=== PATIENT | female | born 1935 | race American Indian/Alaskan Native ===

== ENCOUNTER 2018-10-19 07:16 | Emergency (ER) | payer MEDICARE, OTHER ==
[2018-10-19 07:32] VITALS: TEMP 98.4; O2SAT 100
--- NOTE | 2018-10-19 08:01 | ED PDOC ---
Arrival/HPI - General Chief Complaint: Lower Extremity Problem/Injury Historian: Patient, Family - History of Present Illness Narrative History of Present Illness (Text): 10/19/18 07:56 83 year old female, with a past medical history of CHF, and glaucoma, who presents to the emergency department complaining of hardened long toenails. As per daughter, patient called her stating she had difficulty walking. Daughter reports she traveled from [place] and unsuccessfully attempted to contact several podiatry offices. Patient denies any shortness of breath, edema, fever, nausea, vomiting, chest pain, back pain, or any other somatic complaints. Patie nt denies any pain presently. PMD: Dr. Mathis Symptom Onset: Gradual Symptom Course: Unchanged Activities at Onset: Light Context: Home Past Medical History - Provider Review Nursing Documentation Reviewed: Yes - Infectious Disease Hx of Infectious Diseases: None - Reproductive Menopause: Yes - Cardiac Hx Congestive Heart Failure: Yes - HEENT Hx Glaucoma: Yes - Psychiatric Hx Substance Use: No - Anesthesia Hx Anesthesia: No Hx Anesthesia Reactions: No Hx Malignant Hyperthermia: No Family/Social History - Physician Review Nursing Documentation Reviewed: Yes Family/Social History: Unknown Family HX Smoking Status: Never Smoked Hx Alcohol Use: No Hx Substance Use: No Allergies/Home Meds Allergies/Adverse Reactions: Allergies No Known Allergies Allergy (Verified 10/19/18 07:31) Home Medications: Home Meds Medication Instructions Recorded Confirmed Unobtainable 10/19/18 10/19/18 Review of Systems - Physician Review All systems were reviewed & negative as marked: Yes - Review of Systems Respiratory: absent: SOB Cardiovascular: absent: Chest Pain Gastrointestinal: absent: Nausea, Vomiting Musculoskeletal: absent: Back Pain, Neck Pain Neurological: Gait Changes Physical Exam Vital Signs Reviewed: Yes Vital Signs Temp Pulse Resp BP Pulse Ox 10/19/18 07:30 98.4 F 79 17 154/89 H 100 Temperature: Afebrile Blood Pressure: Normal Pulse: Regular Respiratory Rate: Normal Appearance: Positive for: Well-Appearing, Non-Toxic, Comfortable Pain Distress: None Mental Status: Positive for: Alert and Oriented X 3 - Systems Exam Head: Present: Atraumatic, Normocephalic Pupils: Present: PERRL Extroacular Muscles: Present: EOMI Conjunctiva: Present: Normal Mouth: Present: Moist Mucous Membranes Neck: Present: Normal Range of Motion Respiratory/Chest: Present: Clear to Auscultation, Good Air Exchange. No: Respiratory Distress, Accessory Muscle Use Cardiovascular: Present: Regular Rate and Rhythm, Normal S1, S2. No: Murmurs Abdomen: No: Tenderness, Distention, Peritoneal Signs Back: Present: Normal Inspection Upper Extremity: Present: Normal Inspection. No: Cyanosis, Edema Lower Extremity: Present: Other (Onychauxis, hyperkeratosis of the hallux, bilaterally.). No: Edema Neurological: Present: GCS=15, CN II-XII Intact, Speech Normal Skin: Present: Warm, Dry, Normal Color. No: Rashes Psychiatric: Present: Alert, Oriented x 3, Normal Insight, Normal Concentration Medical Decision Making ED Course and Treatment: 10/19/18 07:54 Impression: 83 year old female presents to the emergency department complaining of hardened long toenails. Differential Diagnosis included but are not limited to: Plan: -- Labs -- Chest X-ray -- Urinalysis -- Iv fluids -- X-ray left and right foot -- Reassess and disposition Prior Visits: Notes and results from previous visits were reviewed. Progress Notes: 10/19/18 09:12 Spoke with Podiatry resident, who says Dr. foley (podiatry) is available today. I spoke with patient and daughter, who are aware and agree with plan. - Lab Interpretations Lab Results: 10/19/18 08:15 10/19/18 08:15 Lab Results 10/19/18 08:15: Blood Type Pending, Antibody Screen Pending, BBK History Checked No verified bt 10/19/18 08:15: Sodium 143, Potassium 4.2, Chloride 106, Carbon Dioxide 31, Anion Gap 10, BUN 11, Creatinine 0.7, Est GFR ( Amer) > 60, Est GFR (Non- Af Amer) > 60, Random Glucose 94, Calcium 9.1, Total Bilirubin 0.8, AST 49 H, ALT 37, Alkaline Phosphatase 87, Total Protein 7.7, Albumin 4.0, Globulin 3.7, Albumin/Globulin Ratio 1.1 10/19/18 08:15: PT 11.1, INR 0.98, APTT 31.7 10/19/18 08:15: WBC 4.5, RBC 4.43, Hgb 12.7, Hct 39.1, MCV 88.3, MCH 28.7, MCHC 32.5, RDW 14.3, Plt Count 253, MPV 9.2, Neut % (Auto) 55.4, Lymph % (Auto) 34.4, [place] % (Auto) 6.9 H, Eos % (Auto) 2.4, Baso % (Auto) 0.9, Lymph # (Auto) 1.6, [place] # (Auto) 0.3, Eos # (Auto) 0.1, Baso # (Auto) 0.04, Absolute Neuts (auto) 2.50, ESR Pending 10/19/18 08:00: Urine Color Yellow, Urine Appearance Clear, Urine pH 6.5, Ur Specific [place] 1.015, Urine Protein Negative, Urine Glucose (UA) Negative, Urine Ketones Negative, Urine Blood Negative, Urine Nitrate Negative, Urine Bilirubin Negative, Urine Urobilinogen 0.2, Ur Leukocyte Esterase Small H, Urine RBC None, Urine WBC 1 - 3, Ur Epithelial Cells 0 - 2, Urine Bacteria Small I have reviewed the lab results: Yes - RAD Interpretation Narrative RAD Interpretations (Text): 10/19/18 14:42 Chest X-ray reviewed by radiologist, shows: No active disease. Foot X-ray reviewed by radiologist, shows: No acute findings. Aesthetician: Radiologist - Kadenibfroylan Statement The provider has reviewed the documentation as recorded by the Kadenibfroylan Meyers All medical record entries made by the Kadenibe were at my direction and personally dictated by me. I have reviewed the chart and agree that the record accurately reflects my personal performance of the history, physical exam, medical decision making, and the department course for this patient. I have also personally directed, reviewed, and agree with the discharge instructions and disposition. Disposition/Present on Arrival - Present on Arrival Any Indicators Present on Arrival: No History of DVT/PE: No History of Uncontrolled Diabetes: No Urinary Catheter: No History of Decub. Ulcer: No History Surgical Site Infection Following: None - Disposition Have Diagnosis and Disposition been Completed?: Yes Diagnosis: Onychauxis Disposition: HOME/ ROUTINE Disposition Time: 09:22 Patient Plan: Discharge Condition: STABLE Discharge Instructions (ExitCare): Metatarsalgia (DC) Print Language: FINNISH Additional Instructions: All medical record entries made by the Scribe were at my direction and personally dictated by me. I have reviewed the chart and agree that the record accurately reflects my personal performance of the history, physical exam, medical decision making, and the department course for this patient. I have also personally directed, reviewed, and agree with the discharge instructions and disposition. Please go to the office hours of one of the podiatrists listed in your discharge paper work Referrals: Jorge Foley DPM [Staff Provider] - Follow up with primary Carolina Bunch DPM [Staff Provider] - Follow up with primary Paul Ramos DPM [Doctor Podiatric Medicine] - Follow up with primary Forms: [employer] ([place])
[2018-10-19 08:22] LABS: PH,URINE 6.5 (4.7-8.0); URINE BILIRUBIN NEGATIVE (NEGATIVE); URINE BLOOD NEGATIVE (NEGATIVE); URINE GLUCOSE (UA) NEGATIVE (NEGATIVE); URINE LEUKOCYTE ESTERASE SMALL Leu/uL (NEGATIVE); URINE PROTEIN NEGATIVE mg/dL (<30 mg/dL); URINE UROBILINOGEN 0.2 E.U./dL (<1 E.U./dL)
[2018-10-19 08:22] LABS: BASO # 0.04 K/mm3 (0.0-2.0); BASO % 0.9 % (0.0-3.0); EOS # 0.1 (0.0-0.7); EOS % 2.4 % (1.5-5.0); HEMOGLOBIN 12.7 g/dL (12.0-16.0); LYMPH # 1.6 (1.2-3.4); LYMPH % 34.4 % (22.0-35.0); MEAN CELL VOLUME 88.3 fl (80.0-105.0); MEAN CORPUSCULAR HEMOGLOBIN 28.7 pg (25.0-35.0); MEAN CORPUSCULAR HGB CONC 32.5 g/dl (31.0-37.0); MEAN PLATELET VOLUME 9.2 fl (7.0-11.0); MONO # 0.3 (0.1-0.6); MONO % 6.9 % (1.0-6.0); RBC 4.43 10^6/uL (3.5-6.1); RED CELL DISTRIBUTION WIDTH 14.3 % (11.5-14.5); WHITE BLOOD COUNT 4.5 10^3/uL (4.5-11.0)
[2018-10-19 08:24] LABS: URINE APPEARANCE CLEAR (CLEAR); URINE COLOR YELLOW (YELLOW)
[2018-10-19 08:33] LABS: INR 0.98; PARTIAL THROMBOPLASTIN TIME 31.7 Seconds (26.9-38.3); PROTHROMBIN TIME 11.1 SECONDS (9.4-12.5)
[2018-10-19 08:35] LABS: ALB/GLOB RATIO 1.1 (1.1-1.8); ALT/SGPT 37 U/L (7-56); AST/SGOT 49 U/L (14-36); BLOOD UREA NITROGEN 11 mg/dL (7-21); CALCIUM 9.1 mg/dL (8.4-10.5); GFR NON-AFRICAN AMERICAN > 60
[2018-10-19 08:44] LABS: URINE BACTERIA SMALL /hpf; URINE EPITHELIAL CELLS 0 - 2 /hpf (0-5)
[2018-10-19 09:38] VITALS: BP 160/78; PULSE 77; RESP 15
--- NOTE | 2018-10-19 10:52 | RAD ---
Date of service: 10/19/2018 HISTORY: pre op COMPARISON: No prior. TECHNIQUE: 1 view obtained. FINDINGS: LUNGS: No active pulmonary disease. PLEURA: No significant pleural effusion identified, no pneumothorax apparent. CARDIOVASCULAR: No aortic atherosclerotic calcification present. Normal cardiac size. No pulmonary vascular congestion. OSSEOUS STRUCTURES: No significant abnormalities. VISUALIZED UPPER ABDOMEN: Normal. OTHER FINDINGS: None. IMPRESSION: No active disease.
--- NOTE | 2018-10-19 11:43 | RAD ---
Date of service: 10/19/2018 PROCEDURE: Right Foot Radiographs. HISTORY: foot pain COMPARISON: None. TECHNIQUE: 3 views obtained. FINDINGS: BONES: Normal. No fracture. JOINTS: Mild degenerative changes in the 1st MTP joint SOFT TISSUES: Normal. OTHER FINDINGS: None. IMPRESSION: No acute findings
== END 2018-10-19 09:42 | disposition home or self-care (01) ==
LOC: ED 07:16
DX: L60.2 Onychogryphosis (principal); I50.9 Heart failure, unspecified